=== PATIENT | female | born 2000 | race Caucasian/White ===

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

== ENCOUNTER 2018-09-15 16:10 | Emergency (ER) | payer MEDICAID ==
[~2018-09-15] VITALS: Ht 172.7 cm; Wt 65.0 kg
[2018-09-15 16:25] VITALS: BP 132/74; Ht 172.7 cm; Wt 65.0 kg
[2018-09-15] MEDS ORDERED: ATIVAN0.5 MG PO (16:27)
[2018-09-15] MEDS ORDERED: KLONOPIN0.5 MG PO (17:31)
== END 2018-09-15 17:55 | disposition home or self-care (01) ==
LOC: D.ER 16:10
DX: F41.9 Anxiety disorder, unspecified (principal); F43.10 Post-traumatic stress disorder, unspecified; X58.XXXA Exposure to other specified factors, initial encounter; Y93.89 Activity, other specified; Y92.019 Unspecified place in single-family (private) house as the place of occurrence of the external cause

== ENCOUNTER 2018-09-25 14:38 | Emergency (ER) | payer MEDICAID ==
[~2018-09-25] VITALS: Ht 172.7 cm; Wt 65.0 kg
[~2018-09-25 14:38] MED LIST: ATIVAN0.5 MG PO; KLONOPIN0.5 MG PO
[2018-09-25 15:02] VITALS: Ht 172.7 cm; Wt 65.0 kg
[2018-09-25] MEDS ORDERED: COMPAZINE5 MG PO (16:34)
[2018-09-25] MEDS ORDERED: VISTARIL25 MG PO (16:34)
[2018-09-25 16:44] VITALS: BP 112/068
== END 2018-09-25 16:46 | disposition home or self-care (01) ==
LOC: D.ER 14:38
DX: F41.9 Anxiety disorder, unspecified (principal)

== ENCOUNTER 2019-01-05 18:46 | Emergency (ER) | payer MEDICAID ==
[~2019-01-05] VITALS: Ht 172.7 cm; Wt 65.9 kg
[~2019-01-05 18:46] MED LIST changes: +COMPAZINE5 MG PO; +VISTARIL25 MG PO
[2019-01-05 19:20] VITALS: Ht 172.7 cm; Wt 65.9 kg
[2019-01-06 02:32] VITALS: BP 108/72
== END 2019-01-06 02:32 | disposition home or self-care (01) ==
LOC: D.ER 18:46
DX: F41.0 Panic disorder [episodic paroxysmal anxiety] (principal); F43.10 Post-traumatic stress disorder, unspecified; X58.XXXA Exposure to other specified factors, initial encounter; Y93.89 Activity, other specified; Y92.019 Unspecified place in single-family (private) house as the place of occurrence of the external cause

== ENCOUNTER 2019-01-07 20:23 | Emergency (ER) | payer MEDICAID ==
[~2019-01-07] VITALS: Ht 172.7 cm; Wt 66.8 kg
[2019-01-07 20:42] VITALS: Ht 172.7 cm; Wt 66.8 kg
[2019-01-07 21:31] VITALS: BP 134/87
== END 2019-01-07 21:30 | disposition home or self-care (01) ==
LOC: D.ER 20:23
DX: F41.9 Anxiety disorder, unspecified (principal); F32.9 Major depressive disorder, single episode, unspecified; F43.11 Post-traumatic stress disorder, acute; X58.XXXA Exposure to other specified factors, initial encounter; Y93.89 Activity, other specified; Y92.89 Other specified places as the place of occurrence of the external cause